=== PATIENT | male | born 1990 | race Two or more races ===

== ENCOUNTER 2022-01-24 08:38 | Emergency (ER) | payer OTHER ==
[~2022-01-24] VITALS: Ht 177.8 cm; Wt 107.0 kg
[2022-01-24 08:54] VITALS: BP 114/59
[2022-01-24] MEDS ORDERED: DICYCLOMINE 10 MG/5 ML ORAL SYR PO STA (09:18)
[2022-01-24] MEDS ORDERED: MAGNESIUM/ALUMINUM HYDROXIDE/SIMETHICONE 30ML UDC PO STA (09:18)
[2022-01-24 09:46] LABS: HEMATOCRIT. 42.5 % (42.0-52.0); HEMOGLOBIN. 14.6 g/dL (14.0-18.0); MEAN CORPUSCULAR HEMOGLOBIN 32.9 pg (28.0-32.0); MEAN PLATELET VOLUME 8.2 fl (7.4-10.4); PLATELET 290 x1000/uL (130-400); RED BLOOD CELL COUNT 4.43 mill/uL (4.7-6.1); RED CELL DISTRIBUTION WIDTH 13.6 % (11.6-14.6)
[2022-01-24 09:49] LABS: CHLORIDE 104 mEq/L (98-107)
[2022-01-24] MEDS ORDERED: IBUP-2029 MT (10:23)
[2022-01-24 12:55] LABS: PLATELET ESTIMATE NORMAL
== END 2022-01-24 10:35 | disposition home or self-care (01) ==
LOC: ER 08:55
DX: S30.1XXA Contusion of abdominal wall, initial encounter (principal); R10.12 Left upper quadrant pain; X58.XXXA Exposure to other specified factors, initial encounter; Y93.89 Activity, other specified; Y92.89 Other specified places as the place of occurrence of the external cause; Y99.8 Other external cause status
CPT/HCPCS: 36415; 74176; 80053; 85025; 93005; 99285